=== PATIENT | male | born 1970 | race Caucasian/White ===

== ENCOUNTER 2018-07-14 06:23 | Day surgery (SDC) | payer OTHER ==
[~2018-07-14] VITALS: Ht 161.3 cm; Wt 49.1 kg
[2018-07-14] MEDS ORDERED: ALBUTEROL SULFATE 2.5 MG/0.5 ML NEB SOLUTION NEB ONE (06:24)
[2018-07-14] MEDS ORDERED: LIDOCAINE 4% 50 ML SOLUTION TP ONE (06:24)
[2018-07-14] MEDS ORDERED: BENZOCAINE 20% 50 MCG/SPRAY 57 GM TP ONE (06:24)
[2018-07-14] MEDS ORDERED: LIDOCAINE 2% 5 ML JELLY TP ONE (06:24)
[2018-07-14] MEDS ORDERED: SODIUM CHLORIDE 0.9% 1,000 ML IV ONE ×2 (06:30→06:39)
[2018-07-14] MEDS ORDERED: LEVO500 PO (07:28)
[2018-07-14] MEDS ORDERED: RANI150T7 PO (07:28)
[2018-07-14] MEDS ORDERED: ALBU8HFA IH (07:28)
[2018-07-14] MEDS ORDERED: MONT10TA21 PO (07:28)
[2018-07-14] MEDS ORDERED: BECL10.6 IH (07:28)
[2018-07-14] MEDS ORDERED: MIDAZOLAM HCL 2 MG/2 ML VIAL ONE (07:41)
[2018-07-14] MEDS ORDERED: FentaNYL CITRATE-PF 100 MCG/2 ML VIAL ONE (07:41)
[2018-07-14] MEDS ORDERED: MethylPREDNISolone SOD SUCC 125 MG/2 ML VIAL IVP ONE (08:45)
[2018-07-14] MEDS ORDERED: MethylPREDNISolone SOD SUCC 125 MG/2 ML VIAL ONE (08:56)
[2018-07-14] MEDS ORDERED: OXYGEN THERAPY IH SCH (20:00)
[2018-07-17 07:14] LABS: QUANTIFERON+, Nil Value 0.03 IU/mL; QUANTIFERON+,TB1 Antigen Value 1.46 IU/mL; QUANTIFERON+,TB2 Antigen Value 1.39 IU/mL; QUANTIFERON, TB GOLD PLUS Positive (Negative)
[2018-07-22 04:21] LABS: MTB NUCL.ACID AMPLIF W/O AFBCS Equivocal (Negative)
== END 2018-07-14 10:20 | disposition home or self-care (01) ==
LOC: SURGERY 06:23
PROVIDERS: ATTEND Internal Medicine Critical Care Medicine
DX: J38.4 Edema of larynx (principal); B37.0 Candidal stomatitis; R84.5 Abnormal microbiological findings in specimens from respiratory organs and thorax; F17.200 Nicotine dependence, unspecified, uncomplicated; Z72.89 Other problems related to lifestyle
CPT/HCPCS: 31623; 31624; 36415; 71045; 86038; 86256; 86480; 86606 ×2; 86698; 87015; 87070; 87101; 87205; 87206; 87220; 87556; 88108; 88312; J2250; J2930; J3010; J7030